=== PATIENT | male | born 1985 | race Caucasian/White ===

== ENCOUNTER 2020-09-23 07:40 | Emergency (ER) | payer SELFPAY ==
[~2020-09-23] VITALS: Ht 177.8 cm; Wt 72.6 kg
[2020-09-23 07:42] VITALS: BP_SYST 134
--- NOTE | 2020-09-23 07:42 | NUR ---
TRIAGED PT AND PLACED IN TENT.
--- NOTE | 2020-09-23 07:50 | NUR ---
PATIENT LEFT WITH OUT BEING SEEN
[2020-09-23] MEDS ORDERED: MAG HYDROX/AL HYDROX/SIMETH 30 ML, DICYCLOMINE HCL 20 MG, LIDOCAINE VISCOUS 2% 15ML (PO... PO ONE ×3 (08:00)
[2020-09-23] MEDS ORDERED: ONDANSETRON 4 MG ODT TAB PO ONE (08:00)
== END 2020-09-23 07:50 | disposition left against medical advice (07) ==
LOC: SED 07:40
DX: R10.9 Unspecified abdominal pain (principal); Z53.21 Procedure and treatment not carried out due to patient leaving prior to being seen by health care provider